=== PATIENT | male | born 1990 | race American Indian/Alaskan Native ===

== ENCOUNTER 2024-07-04 17:00 | Emergency (ER) | payer OTHER ==
[~2024-07-04] VITALS: Ht 172.7 cm; Wt 95.3 kg
[2024-07-04 18:14] VITALS: O2SAT 97
== END 2024-07-04 21:21 | disposition left against medical advice (07) ==
LOC: ER 17:00
DX: M54.6 Pain in thoracic spine (principal); Z53.21 Procedure and treatment not carried out due to patient leaving prior to being seen by health care provider
CPT/HCPCS: A4606; A4663